=== PATIENT | female | born 1950 | race Two or more races ===

== ENCOUNTER 2024-04-26 14:16 | Inpatient (IN) | payer MEDICARE, OTHER ==
[~2024-04-26] VITALS: Ht 152.4 cm; Wt 36.7 kg
[2024-04-26] MEDS ORDERED: ALBUTEROL SULFATE 2.5 MG/3 ML NEBU ONE (14:31)
[2024-04-26] MEDS ORDERED: IPRATROPIUM BROMIDE 0.5 MG/2.5 ML NEBU ONE (14:31)
[2024-04-26 14:35] LABS: BASOPHILS # (AUTO) 0.1 K/UL (0.0-0.2); BASOPHILS % (AUTO) 0.8 % (0.0-2.0); EOSINOPHILS % (AUTO) 0.4 % (0.0-7.0); HEMATOCRIT 35.1 % (31.2-41.9); HEMOGLOBIN 11.4 g/dL (10.9-14.3); LYMPHOCYTES # (AUTO) 1.7 K/uL (0.8-4.8); LYMPHOCYTES % (AUTO) 24.1 % (20.5-51.5); MEAN CORPUSCULAR HEMOGLOBIN 30.4 uug (24.7-32.8); MEAN CORPUSCULAR HGB CONC 32 g/dL (32.3-35.6); MEAN CORPUSCULAR VOLUME 93.7 fL (75.5-95.3); MONOCYTES # (AUTO) 0.4 K/uL (0.1-1.30); MONOCYTES % (AUTO) 6.2 % (0.0-11.0); NEUTROPHILS # (AUTO) 4.8 K/uL (1.8-8.9); NEUTROPHILS % (AUTO) 68.5 % (38.5-71.5); PLATELET COUNT (AUTO) 314 K/uL (179-408); RED BLOOD CELL COUNT(AUTO) 3.75 MIL/uL (3.63-4.92); RED CELL DISTRIBUTION WIDTH 13.7 % (12.3-17.7); WHITE BLOOD COUNT (AUTO) 7.1 K/uL (3.8-11.8)
[2024-04-26 14:37] LABS: DIFFERENTIAL COMMENT 1
[2024-04-26] MEDS: IPRATROPIUM BROMIDE 0.5 MG/2.5 ML NEBU NEB ONE (14:38)
[2024-04-26] MEDS: ALBUTEROL SULFATE 2.5 MG/3 ML NEBU NEB ONE (14:38)
[2024-04-26 14:41] LABS: ABG BASE EXCESS 0.3 mmol/L (-2.0-3.0); ABG HCO3 26.4 mmol/L (21.0-28.0); ABG PCO2 49.2 mmHg (32.0-45.0); ABG PH 7.348 (7.350-7.450); ABG PO2 53.2 mmHg (83.0-108.0); ABG SITE RIGHT BRACHIAL; ABG TOTAL HEMOGLOBIN 12.1 G/dL (12.0-16.0); AaDO2 85.6 mmHg; COHb 0.3 % (0.5-1.5); MetHb 0.3 % (0.0-1.5); O2Hb 84.6 % (94.0-98.0)
[2024-04-26 14:43] LABS: CARBON DIOXIDE 26 mmol/L (21-32); CHLORIDE 108 mmol/L (98-107); CREATININE 0.7 mg/dL (0.6-1.3); GLUCOSE 177 mg/dL (74-106); POTASSIUM 4.1 mmol/L (3.5-5.1); SODIUM SERUM 146 mmol/L (136-145); UREA NITROGEN, BLOOD 32 mg/dL (7-18)
[2024-04-26] MEDS ORDERED: methylPREDNISolone SOD SUCC 125 MG/2 ML VIAL ONE (14:54)
[2024-04-26] MEDS: methylPREDNISolone SOD SUCC 125 MG/2 ML VIAL IV ONE (14:54)
[2024-04-26 14:55] LABS: LACTIC ACID 2.8 mmol/L (0.4-2.0)
[2024-04-26 15:00] LABS: ALANINE AMINOTRANSFERASE 10 U/L (14-59); ALBUMIN 3.1 g/dL (3.4-5.0); ALKALINE PHOSPHATASE 99 U/L (50-136); ASPARTATE AMINOTRANSFERASE 13 U/L (15-37); BILIRUBIN,DIRECT 0.2 mg/dL (0.0-0.2); BILIRUBIN,TOTAL 0.8 mg/dL (0.2-1.0); NT-PRO BNP 557 pg/mL (0-125); TOTAL PROTEIN, SERUM 7.4 g/dL (6.4-8.2)
[2024-04-26] MEDS ORDERED: ACETAMINOPHEN 650 MG SUPP.RECT RC ONE (15:02)
[2024-04-26] MEDS: ACETAMINOPHEN 650 MG SUPP.RECT RC ONE (15:18)
[2024-04-26] MEDS ORDERED: PIPERACILLIN/TAZOBACTAM/D5W 50 ML IV ONE (15:19)
[2024-04-26] MEDS ORDERED: VANCOMYCIN IV 200 ML ONE (15:19)
[2024-04-26] MEDS: IV NORMAL SALINE 1000 ML BAG IV ONE (15:28)
[2024-04-26] MEDS: PIPERACILLIN SODIUM/TAZOBACTAM 3.375 G in IV DEXTROSE 5% 50 ML IV ONE (15:28)
[2024-04-26] MEDS ORDERED: ACET325T53 PO (15:36)
[2024-04-26] MEDS ORDERED: ACET-73 PO (15:36)
[2024-04-26] MEDS ORDERED: TUBE5VIA2 TD (15:37)
[2024-04-26] MEDS ORDERED: ARGI1POW17 PO (15:37)
[2024-04-26] MEDS ORDERED: NA P133E RC (15:37)
[2024-04-26] MEDS ORDERED: CHOL100045 PO (15:37)
[2024-04-26] MEDS ORDERED: SENN8.6T19 PO (15:37)
[2024-04-26] MEDS ORDERED: ASCO500C18 PO (15:37)
[2024-04-26] MEDS ORDERED: GUAI-1189 PO (15:37)
[2024-04-26] MEDS ORDERED: GLYC30DR4 EACHEYE (15:37)
[2024-04-26] MEDS ORDERED: FERR-68 PO (15:37)
[2024-04-26] MEDS ORDERED: MELA3CAP2 PO (15:37)
[2024-04-26] MEDS ORDERED: AMIN960L24 PO (15:37)
[2024-04-26] MEDS ORDERED: BISA10SU61 RC (15:37)
[2024-04-26] MEDS ORDERED: DONE5TAB7 PO (15:37)
[2024-04-26] MEDS ORDERED: MULT-225 PO (15:37)
[2024-04-26] MEDS ORDERED: LACT10SO68 PO (15:37)
[2024-04-26] MEDS ORDERED: MIRT45TA79 PO (15:37)
[2024-04-26] MEDS ORDERED: [UNRECOGNIZED DRUG - CODE] TP (15:37)
[2024-04-26] MEDS ORDERED: MAGN400O6 PO (15:37)
[2024-04-26] MEDS ORDERED: CYAN-28 PO (15:37)
[2024-04-26] MEDS: VANCOMYCIN IV 1,000 MG in IV DEXTROSE 5% 250 ML IV ONE (15:56)
[2024-04-26 16:43] LABS: *BILIRUBIN,URIN NEGATIVE (NEGATIVE); *BLOOD, URINE 1+ (NEGATIVE); *CLARITY,URINE CLEAR (CLEAR); *COLOR,URINE YELLOW (YELLOW); *KETONES,URINE NEGATIVE (NEGATIVE); *PROTEIN,URINE 1+ (NEGATIVE); *UROBILINOGEN,URINE 0.2 E.U./dl (NORMAL); LEUKOCYTE ESTERASE ,URINE NEGATIVE (NEGATIVE); NITRITE, URINE NEGATIVE (NEGATIVE); PH,URINE 5.5 (5.0-8.0); UGLUCOSE TRACE (NEGATIVE)
[2024-04-26 16:47] LABS: RBC,URINE 0-3 /HPF (0-3); WBC,URINE 0-3 /HPF (0-3)
[2024-04-26] MEDS ORDERED: REMEDY ESSENTIAL ZINC PASTE 113 GM TP PRN (17:15)
[2024-04-26] MEDS ORDERED: ACETYLCYSTEINE 10% 4ML VIAL NEB PRN (17:15)
[2024-04-26] MEDS ORDERED: ALBUTEROL SULFATE 2.5 MG/3 ML NEBU NEB PRN (17:15)
[2024-04-26] MEDS ORDERED: ONDANSETRON 4 MG/2 ML VIAL IV PRN (17:15)
[2024-04-26] MEDS ORDERED: IPRATROPIUM BROMIDE 0.5 MG/2.5 ML NEBU NEB PRN (17:15)
[2024-04-26] MEDS ORDERED: ACETAMINOPHEN 650 MG SUPP.RECT RC PRN (17:15)
[2024-04-26] MEDS: ENOXAPARIN SODIUM 40 MG/0.4 ML DISP.SYRIN SQ SCH (17:50)
[2024-04-26 18:13] LABS: ABG BASE EXCESS -6.8 mmol/L (-2.0-3.0); ABG HCO3 17.2 mmol/L (21.0-28.0); ABG PCO2 29.8 mmHg (32.0-45.0); ABG PH 7.379 (7.350-7.450); ABG SITE RIGHT BRACHIAL; ABG TOTAL HEMOGLOBIN 11.1 G/dL (12.0-16.0); AaDO2 99.7 mmHg; COHb 0.2 % (0.5-1.5); MetHb 0.4 % (0.0-1.5)
[2024-04-26] MEDS ORDERED: ENOXAPARIN SODIUM 40 MG/0.4 ML DISP.SYRIN SQ SCH (19:21)
[2024-04-26] MEDS ORDERED: VANCOMYCIN IV 1,000 MG in IV DEXTROSE 5% 250 ML IV ONE (21:00)
[2024-04-26] MEDS ORDERED: PIPERACILLIN SODIUM/TAZOBACTAM 3.375 G in IV DEXTROSE 5% 50 ML IV ONE (22:00)
[2024-04-26 23:00] VITALS: BP 117/50; TEMP 98.5; O2SAT 99
[2024-04-26] MEDS: IV D5 1/2 NS 1000 ML 1,000 ML IV PRN (23:26)
[2024-04-26 23:30] VITALS: BP 115/56; O2SAT 97
[2024-04-27] VITALS (31 sets, daily range): BP systolic 96–132; BP diastolic 46–70; TEMP 97.1–99.6; O2SAT 94–100
[2024-04-27] MEDS ORDERED: REMEDY ESSENTIAL ZINC PASTE 113 GM TOP PRN (03:45)
[2024-04-27] MEDS ORDERED: PIPERACILLIN/TAZOBACTAM/D5W 50 ML IV ONE (04:11)
[2024-04-27] MEDS: PIPERACILLIN SODIUM/TAZOBACTAM 3.375 G in IV DEXTROSE 5% 50 ML IV SCH (05:02)
[2024-04-27 05:04] LABS: BASOPHILS % (AUTO) 0.2 % (0.0-2.0); HEMATOCRIT 28.5 % (31.2-41.9); HEMOGLOBIN 9.5 g/dL (10.9-14.3); LYMPHOCYTES # (AUTO) 0.2 K/uL (0.8-4.8); LYMPHOCYTES % (AUTO) 3.6 % (20.5-51.5); MEAN CORPUSCULAR HEMOGLOBIN 31.1 uug (24.7-32.8); MEAN CORPUSCULAR HGB CONC 34 g/dL (32.3-35.6); MEAN CORPUSCULAR VOLUME 92.9 fL (75.5-95.3); MONOCYTES # (AUTO) 0.3 K/uL (0.1-1.30); MONOCYTES % (AUTO) 4.5 % (0.0-11.0); NEUTROPHILS % (AUTO) 91.7 % (38.5-71.5); PLATELET COUNT (AUTO) 214 K/uL (179-408); RED BLOOD CELL COUNT(AUTO) 3.06 MIL/uL (3.63-4.92); RED CELL DISTRIBUTION WIDTH 13.5 % (12.3-17.7); WHITE BLOOD COUNT (AUTO) 6.5 K/uL (3.8-11.8)
[2024-04-27 05:25] LABS: DIFFERENTIAL COMMENT 1
[2024-04-27 05:37] LABS: CALCIUM 9.3 mg/dL (8.5-10.1); CARBON DIOXIDE 24 mmol/L (21-32); CHLORIDE 112 mmol/L (98-107); CREATININE 0.7 mg/dL (0.6-1.3); GLUCOSE 181 mg/dL (74-106); PHOSPHOROUS 1.6 mg/dL (2.5-4.9); POTASSIUM 3.2 mmol/L (3.5-5.1); SODIUM SERUM 146 mmol/L (136-145); UREA NITROGEN, BLOOD 24 mg/dL (7-18)
[2024-04-27] MEDS ORDERED: PIPERACILLIN SODIUM/TAZOBACTAM 3.375 G in IV DEXTROSE 5% 50 ML IV SCH (06:00)
[2024-04-27] MEDS: VANCOMYCIN IV 500 MG in IV DEXTROSE 5% 100 ML IV ONE (07:57)
[2024-04-27] MEDS: PANTOPRAZOLE SODIUM 40 MG VIAL IV SCH (08:04)
[2024-04-27] MEDS ORDERED: ENOXAPARIN SODIUM 40 MG/0.4 ML DISP.SYRIN SQ SCH ×2 (09:00)
[2024-04-27] MEDS: POTASSIUM PHOSPHATE MM 15 MMOL in IV NORMAL SALINE 250 ML IV ONE (09:33)
[2024-04-27] MEDS: PIPERACILLIN SODIUM/TAZOBACTAM 3.375 G in IV DEXTROSE 5% 100 ML IV SCH (14:16)
[2024-04-27] MEDS: ENOXAPARIN SODIUM 30 MG/0.3 ML DISP.SYRIN SUBCUT SCH (20:05)
[2024-04-28] VITALS (24 sets, daily range): BP systolic 91–143; BP diastolic 39–85; TEMP 97.1–98.5; O2SAT 95–98
[2024-04-28 05:16] LABS: BASOPHILS % (AUTO) 0.4 % (0.0-2.0); EOSINOPHILS # (AUTO) 0.2 K/uL (0.0-0.7); EOSINOPHILS % (AUTO) 2.9 % (0.0-7.0); HEMATOCRIT 27.3 % (31.2-41.9); HEMOGLOBIN 9.1 g/dL (10.9-14.3); LYMPHOCYTES # (AUTO) 0.5 K/uL (0.8-4.8); LYMPHOCYTES % (AUTO) 7.2 % (20.5-51.5); MEAN CORPUSCULAR HEMOGLOBIN 30.9 uug (24.7-32.8); MEAN CORPUSCULAR HGB CONC 33 g/dL (32.3-35.6); MEAN CORPUSCULAR VOLUME 92.9 fL (75.5-95.3); MONOCYTES # (AUTO) 0.4 K/uL (0.1-1.30); MONOCYTES % (AUTO) 6.1 % (0.0-11.0); NEUTROPHILS # (AUTO) 5.4 K/uL (1.8-8.9); NEUTROPHILS % (AUTO) 83.4 % (38.5-71.5); PLATELET COUNT (AUTO) 206 K/uL (179-408); RED BLOOD CELL COUNT(AUTO) 2.94 MIL/uL (3.63-4.92); RED CELL DISTRIBUTION WIDTH 13.7 % (12.3-17.7); WHITE BLOOD COUNT (AUTO) 6.5 K/uL (3.8-11.8)
[2024-04-28 05:19] LABS: DIFFERENTIAL COMMENT 1
[2024-04-28 05:30] LABS: ALBUMIN 2.2 g/dL (3.4-5.0); CALCIUM 8.9 mg/dL (8.5-10.1); CARBON DIOXIDE 27 mmol/L (21-32); CHLORIDE 114 mmol/L (98-107); CREATININE 0.6 mg/dL (0.6-1.3); GLUCOSE 100 mg/dL (74-106); PHOSPHOROUS 1.8 mg/dL (2.5-4.9); POTASSIUM 3.2 mmol/L (3.5-5.1); SODIUM SERUM 146 mmol/L (136-145); UREA NITROGEN, BLOOD 12 mg/dL (7-18)
[2024-04-28 05:52] LABS: HIV-1 p24 ANTIGEN NON REACTIVE (NONREACTIVE); HIV-1/2 ANTIBODY NON REACTIVE (NONREACTIVE)
[2024-04-28 06:25] LABS: ABG BASE EXCESS -1.1 mmol/L (-2.0-3.0); ABG HCO3 22.5 mmol/L (21.0-28.0); ABG PCO2 33.2 mmHg (32.0-45.0); ABG PH 7.449 (7.350-7.450); ABG PO2 83.8 mmHg (83.0-108.0); ABG SITE LEFT RADIAL; ABG TOTAL HEMOGLOBIN 9.9 G/dL (12.0-16.0); AaDO2 96.8 mmHg; COHb 0.2 % (0.5-1.5); MetHb 0.3 % (0.0-1.5); O2Hb 95.9 % (94.0-98.0)
[2024-04-28] MEDS: POTASSIUM PHOSPHATE MM 15 MMOL in IV NORMAL SALINE 250 ML IV ONE (09:03)
[2024-04-28] MEDS ORDERED: IV NORMAL SALINE 500 ML BAG IV ONE (12:15)
[2024-04-28] MEDS: MEDIHONEY= THERAHONEY 1.5 OZ TUBE TOP SCH (13:11)
[2024-04-28] MEDS: IV NORMAL SALINE 500 ML IV ONE (13:12)
[2024-04-28] MEDS ORDERED: SODIUM PHOSPHATE MM 15 MMOL in IV NORMAL SALINE 250 ML IV ONE (17:00)
[2024-04-28] MEDS: VANCOMYCIN IV 1,000 MG in IV DEXTROSE 5% 250 ML IV ONE (20:22)
[2024-04-28] MEDS ORDERED: MUPIROCIN 2% OINT 22 GM TUBE ONE (21:42)
[2024-04-28] MEDS: MUPIROCIN 2% OINT 22 GM TUBE NS SCH (21:48)
[2024-04-29] VITALS: BP 121/55; TEMP 97.5; O2SAT 96
[2024-04-29 04:00] VITALS: BP 108/52; TEMP 98.7; O2SAT 96
[2024-04-29 06:06] LABS: HEPATITIS B CORE AB, TOTAL Negative (Negative); HEPATITIS B SURFACE AB, QUAL Reactive (.); HEPATITIS B SURFACE AG Negative (Negative); HEPATITIS C VIRUS ANTIBODY Non Reactive (Non Reactive)
[2024-04-29 07:11] LABS: BASOPHILS # (AUTO) 0.1 K/UL (0.0-0.2); EOSINOPHILS # (AUTO) 0.4 K/uL (0.0-0.7); EOSINOPHILS % (AUTO) 6.3 % (0.0-7.0); HEMATOCRIT 26.6 % (31.2-41.9); LYMPHOCYTES # (AUTO) 0.7 K/uL (0.8-4.8); LYMPHOCYTES % (AUTO) 11.6 % (20.5-51.5); MEAN CORPUSCULAR HGB CONC 34 g/dL (32.3-35.6); MEAN CORPUSCULAR VOLUME 91.8 fL (75.5-95.3); MONOCYTES # (AUTO) 0.4 K/uL (0.1-1.30); MONOCYTES % (AUTO) 7.1 % (0.0-11.0); NEUTROPHILS # (AUTO) 4.2 K/uL (1.8-8.9); PLATELET COUNT (AUTO) 219 K/uL (179-408); RED CELL DISTRIBUTION WIDTH 13.2 % (12.3-17.7); WHITE BLOOD COUNT (AUTO) 5.7 K/uL (3.8-11.8)
[2024-04-29 07:13] LABS: DIFFERENTIAL COMMENT 1
[2024-04-29 07:14] LABS: CALCIUM 8.2 mg/dL (8.5-10.1); CARBON DIOXIDE 26 mmol/L (21-32); CHLORIDE 110 mmol/L (98-107); CREATININE 0.5 mg/dL (0.6-1.3); GLUCOSE 99 mg/dL (74-106); MAGNESIUM 1.9 mg/dL (1.8-2.4); PHOSPHOROUS 2.2 mg/dL (2.5-4.9); SODIUM SERUM 144 mmol/L (136-145); UREA NITROGEN, BLOOD 4 mg/dL (7-18)
[2024-04-29 07:45] LABS: C-REACTIVE PROTEIN 5.86 mg/dL (0.00-0.30); POTASSIUM 2.7 mmol/L (3.5-5.1)
[2024-04-29 08:00] VITALS: BP 139/51; TEMP 98.2; O2SAT 98
[2024-04-29] MEDS: POTASSIUM PHOSPHATE MM 15 MMOL in IV NORMAL SALINE 250 ML IV ONE (10:12)
[2024-04-29] MEDS: POTASSIUM CHLORIDE 50 ML IV SCH (10:12)
[2024-04-29 16:00] VITALS: BP 138/54; TEMP 97.8; O2SAT 97
[2024-04-29] MEDS: VANCOMYCIN IV 1,000 MG in IV DEXTROSE 5% 250 ML IV ONE (18:34)
[2024-04-29 19:00] VITALS: BP 142/56; TEMP 98.4; O2SAT 94
[2024-04-29 20:19] VITALS: O2SAT 98
[2024-04-30] MEDS: POTASSIUM CHLORIDE 20 MEQ in IV D5 1/2 NS 1000 ML 1,000 ML IV PRN (02:28)
[2024-04-30 06:33] VITALS: BP 136/55; TEMP 97.7; O2SAT 95
[2024-04-30 07:08] LABS: BASOPHILS # (AUTO) 0.1 K/UL (0.0-0.2); BASOPHILS % (AUTO) 1.4 % (0.0-2.0); EOSINOPHILS # (AUTO) 0.4 K/uL (0.0-0.7); EOSINOPHILS % (AUTO) 7.4 % (0.0-7.0); HEMATOCRIT 29.4 % (31.2-41.9); HEMOGLOBIN 9.8 g/dL (10.9-14.3); LYMPHOCYTES # (AUTO) 0.8 K/uL (0.8-4.8); LYMPHOCYTES % (AUTO) 14.9 % (20.5-51.5); MEAN CORPUSCULAR HEMOGLOBIN 30.7 uug (24.7-32.8); MEAN CORPUSCULAR HGB CONC 33 g/dL (32.3-35.6); MONOCYTES # (AUTO) 0.5 K/uL (0.1-1.30); MONOCYTES % (AUTO) 9.4 % (0.0-11.0); NEUTROPHILS # (AUTO) 3.7 K/uL (1.8-8.9); NEUTROPHILS % (AUTO) 66.9 % (38.5-71.5); PLATELET COUNT (AUTO) 242 K/uL (179-408); RED CELL DISTRIBUTION WIDTH 13.2 % (12.3-17.7); WHITE BLOOD COUNT (AUTO) 5.6 K/uL (3.8-11.8)
[2024-04-30 07:43] LABS: DIFFERENTIAL COMMENT 1
[2024-04-30 07:46] LABS: CALCIUM 8.5 mg/dL (8.5-10.1); CARBON DIOXIDE 26 mmol/L (21-32); CHLORIDE 108 mmol/L (98-107); CREATININE 0.6 mg/dL (0.6-1.3); GLUCOSE 94 mg/dL (74-106); PHOSPHOROUS 2.6 mg/dL (2.5-4.9); POTASSIUM 3.1 mmol/L (3.5-5.1); SODIUM SERUM 142 mmol/L (136-145); UREA NITROGEN, BLOOD 5 mg/dL (7-18)
[2024-04-30] MEDS: POTASSIUM CHLORIDE 50 ML IV SCH (10:40)
[2024-04-30 11:36] VITALS: BP 110/60; TEMP 97.9; O2SAT 97
[2024-04-30 12:15] VITALS: O2SAT 98
[2024-04-30] MEDS: VANCOMYCIN IV 1,000 MG in IV DEXTROSE 5% 250 ML IV SCH (18:12)
[2024-04-30 20:00] VITALS: BP 125/59; TEMP 97.9; O2SAT 97
[2024-04-30 20:28] VITALS: O2SAT 98
[2024-05-01 06:00] VITALS: BP 144/49; TEMP 97.6; O2SAT 96
[2024-05-01 07:35] LABS: BASOPHILS % (AUTO) 0.8 % (0.0-2.0); EOSINOPHILS # (AUTO) 0.5 K/uL (0.0-0.7); EOSINOPHILS % (AUTO) 9.5 % (0.0-7.0); HEMATOCRIT 29.1 % (31.2-41.9); LYMPHOCYTES # (AUTO) 0.8 K/uL (0.8-4.8); LYMPHOCYTES % (AUTO) 15.4 % (20.5-51.5); MEAN CORPUSCULAR HEMOGLOBIN 30.8 uug (24.7-32.8); MEAN CORPUSCULAR HGB CONC 34 g/dL (32.3-35.6); MEAN CORPUSCULAR VOLUME 89.9 fL (75.5-95.3); MONOCYTES # (AUTO) 0.5 K/uL (0.1-1.30); MONOCYTES % (AUTO) 9.6 % (0.0-11.0); NEUTROPHILS # (AUTO) 3.4 K/uL (1.8-8.9); NEUTROPHILS % (AUTO) 64.7 % (38.5-71.5); PLATELET COUNT (AUTO) 282 K/uL (179-408); RED BLOOD CELL COUNT(AUTO) 3.23 MIL/uL (3.63-4.92); RED CELL DISTRIBUTION WIDTH 13.3 % (12.3-17.7); WHITE BLOOD COUNT (AUTO) 5.2 K/uL (3.8-11.8)
[2024-05-01 07:52] LABS: CALCIUM 8.9 mg/dL (8.5-10.1); CARBON DIOXIDE 26 mmol/L (21-32); CHLORIDE 109 mmol/L (98-107); CREATININE 0.5 mg/dL (0.6-1.3); GLUCOSE 105 mg/dL (74-106); MAGNESIUM 1.9 mg/dL (1.8-2.4); PHOSPHOROUS 2.1 mg/dL (2.5-4.9); SODIUM SERUM 143 mmol/L (136-145); UREA NITROGEN, BLOOD 4 mg/dL (7-18)
[2024-05-01 07:54] LABS: DIFFERENTIAL COMMENT 1
[2024-05-01 08:05] LABS: POTASSIUM 3.6 mmol/L (3.5-5.1)
[2024-05-01] MEDS: POTASSIUM PHOSPHATE MM 15 MMOL in IV NORMAL SALINE 250 ML IV ONE (10:51)
[2024-05-01 11:03] VITALS: BP 138/60; TEMP 97.5; O2SAT 95
[2024-05-01] MEDS ORDERED: POTASSIUM PHOSPHATE MM 7.5 MMOL in IV NORMAL SALINE 97.5 ML IV ONE (12:00)
[2024-05-01 15:18] VITALS: BP 144/56; TEMP 97.3; O2SAT 95
[2024-05-01] MEDS ORDERED: JEVITY 1.2 1000 ML LIQUID GT PRN (15:45)
[2024-05-01] MEDS: JEVITY 1.2 1000 ML LIQUID GT PRN (16:54)
[2024-05-01 20:00] VITALS: BP 123/52; TEMP 98.1; O2SAT 96
[2024-05-01 20:30] VITALS: O2SAT 95
[2024-05-01 23:00] VITALS: O2SAT 98
[2024-05-02 06:12] VITALS: BP 114/53; TEMP 97.4; O2SAT 98
[2024-05-02 07:15] LABS: BASOPHILS % (AUTO) 0.8 % (0.0-2.0); EOSINOPHILS # (AUTO) 0.6 K/uL (0.0-0.7); EOSINOPHILS % (AUTO) 11.1 % (0.0-7.0); HEMATOCRIT 29.5 % (31.2-41.9); HEMOGLOBIN 10.1 g/dL (10.9-14.3); LYMPHOCYTES # (AUTO) 0.6 K/uL (0.8-4.8); LYMPHOCYTES % (AUTO) 11.6 % (20.5-51.5); MEAN CORPUSCULAR HEMOGLOBIN 31.4 uug (24.7-32.8); MEAN CORPUSCULAR HGB CONC 34 g/dL (32.3-35.6); MEAN CORPUSCULAR VOLUME 91.7 fL (75.5-95.3); MONOCYTES # (AUTO) 0.5 K/uL (0.1-1.30); MONOCYTES % (AUTO) 8.6 % (0.0-11.0); NEUTROPHILS # (AUTO) 3.8 K/uL (1.8-8.9); NEUTROPHILS % (AUTO) 67.9 % (38.5-71.5); PLATELET COUNT (AUTO) 284 K/uL (179-408); RED BLOOD CELL COUNT(AUTO) 3.22 MIL/uL (3.63-4.92); RED CELL DISTRIBUTION WIDTH 13.4 % (12.3-17.7); WHITE BLOOD COUNT (AUTO) 5.6 K/uL (3.8-11.8)
[2024-05-02 07:33] LABS: DIFFERENTIAL COMMENT 1
[2024-05-02 07:42] LABS: CALCIUM 8.7 mg/dL (8.5-10.1); CARBON DIOXIDE 26 mmol/L (21-32); CHLORIDE 109 mmol/L (98-107); CREATININE 0.7 mg/dL (0.6-1.3); GLUCOSE 128 mg/dL (74-106); MAGNESIUM 1.9 mg/dL (1.8-2.4); PHOSPHOROUS 2.8 mg/dL (2.5-4.9); POTASSIUM 3.6 mmol/L (3.5-5.1); SODIUM SERUM 142 mmol/L (136-145); UREA NITROGEN, BLOOD 2 mg/dL (7-18)
[2024-05-02] MEDS: PANTOPRAZOLE ORAL SUSPENSION 40 MG SUSPDR.PKT GT SCH (10:00)
[2024-05-02 11:42] VITALS: BP 133/51; TEMP 98.4; O2SAT 98
[2024-05-02 14:04] VITALS: O2SAT 98
[2024-05-02 16:00] VITALS: BP 142/69; TEMP 97.8; O2SAT 99
[2024-05-03] VITALS (7 sets, daily range): BP systolic 120–141; BP diastolic 47–71; TEMP 98–98.7; O2SAT 95–100
[2024-05-03 01:09] LABS: ADENOVIRUS Not Detected (Not Detected); CORONAVIRUS 229E Not Detected (Not Detected); CORONAVIRUS HKU1 Not Detected (Not Detected); CORONAVIRUS NL63 Not Detected (Not Detected); CORONAVIRUS OC43 Not Detected (Not Detected); NP BORDETELLA PERTUSIS Not Detected (Not Detected); NP CHLAMYDOPHILA PNEUMONIAE Not Detected (Not Detected); NP HUMAN METAPNEUMOVIRUS Not Detected (Not Detected); NP HUMAN RHINO/ENTERO VIRUS Not Detected (Not Detected); NP INFLUENZA A Not Detected (Not Detected); NP INFLUENZA A/H1 Not Detected (Not Detected); NP INFLUENZA A/H1-2009 Not Detected (Not Detected); NP INFLUENZA A/H3 Not Detected (Not Detected); NP INFLUENZA B Not Detected (Not Detected); NP MYCOPLASMA PNEUMONIAE Not Detected (Not Detected); NP PARAINFLUENZA 1 Not Detected (Not Detected); NP PARAINFLUENZA 2 Not Detected (Not Detected); NP PARAINFLUENZA 3 Not Detected (Not Detected); NP PARAINFLUENZA 4 Not Detected (Not Detected); NP RESPIRATORY SYNCYTIAL VIRUS Not Detected (Not Detected)
[2024-05-03 07:24] LABS: BASOPHILS # (AUTO) 0.1 K/UL (0.0-0.2); BASOPHILS % (AUTO) 0.7 % (0.0-2.0); EOSINOPHILS # (AUTO) 0.8 K/uL (0.0-0.7); EOSINOPHILS % (AUTO) 9.5 % (0.0-7.0); HEMOGLOBIN 9.7 g/dL (10.9-14.3); LYMPHOCYTES # (AUTO) 0.7 K/uL (0.8-4.8); LYMPHOCYTES % (AUTO) 8.1 % (20.5-51.5); MEAN CORPUSCULAR HEMOGLOBIN 30.8 uug (24.7-32.8); MEAN CORPUSCULAR HGB CONC 34 g/dL (32.3-35.6); MONOCYTES # (AUTO) 0.5 K/uL (0.1-1.30); MONOCYTES % (AUTO) 6.2 % (0.0-11.0); NEUTROPHILS # (AUTO) 6.1 K/uL (1.8-8.9); NEUTROPHILS % (AUTO) 75.5 % (38.5-71.5); PLATELET COUNT (AUTO) 286 K/uL (179-408); RED BLOOD CELL COUNT(AUTO) 3.15 MIL/uL (3.63-4.92)
[2024-05-03 07:31] LABS: CALCIUM 8.9 mg/dL (8.5-10.1); CARBON DIOXIDE 24 mmol/L (21-32); CHLORIDE 110 mmol/L (98-107); CREATININE 0.6 mg/dL (0.6-1.3); GLUCOSE 133 mg/dL (74-106); MAGNESIUM 1.8 mg/dL (1.8-2.4); PHOSPHOROUS 2.6 mg/dL (2.5-4.9); POTASSIUM 3.8 mmol/L (3.5-5.1); SODIUM SERUM 143 mmol/L (136-145); UREA NITROGEN, BLOOD 5 mg/dL (7-18)
[2024-05-03 07:33] LABS: DIFFERENTIAL COMMENT 1
[2024-05-03 08:07] LABS: C-REACTIVE PROTEIN 1.03 mg/dL (0.00-0.30)
[2024-05-03] MEDS ORDERED: PROPOFOL 200 MG/20 ML BOTTLE ONE (19:00)
[2024-05-04 04:23] VITALS: O2SAT 97
[2024-05-04 06:00] VITALS: BP 134/45; TEMP 97.3; O2SAT 97
[2024-05-04] MEDS: PIPERACILLIN SODIUM/TAZOBACTAM 3.375 G in IV DEXTROSE 5% 50 ML IV SCH (11:32)
[2024-05-04 12:00] VITALS: BP 133/59; TEMP 98.6; O2SAT 98
[2024-05-04 16:00] VITALS: BP 129/53; TEMP 97.8; O2SAT 97
[2024-05-04 20:43] VITALS: BP 114/43; TEMP 97.7; O2SAT 98
[2024-05-04 22:37] VITALS: O2SAT 97
[2024-05-05 07:17] LABS: CALCIUM 8.9 mg/dL (8.5-10.1); CARBON DIOXIDE 27 mmol/L (21-32); CHLORIDE 107 mmol/L (98-107); CREATININE 0.5 mg/dL (0.6-1.3); GLUCOSE 138 mg/dL (74-106); SODIUM SERUM 139 mmol/L (136-145); UREA NITROGEN, BLOOD 4 mg/dL (7-18)
[2024-05-05 08:50] VITALS: O2SAT 98
[2024-05-05 12:00] VITALS: BP 128/47; TEMP 98.2; O2SAT 98
[2024-05-05 16:00] VITALS: BP 127/51; TEMP 98.3; O2SAT 99
[2024-05-05 20:00] VITALS: BP 126/55; TEMP 97.8; O2SAT 100
[2024-05-05 21:25] VITALS: O2SAT 99
[2024-05-06 06:00] VITALS: BP 114/47; TEMP 98.5; O2SAT 97
[2024-05-06 07:31] LABS: ALANINE AMINOTRANSFERASE 13 U/L (14-59); ALBUMIN 2.1 g/dL (3.4-5.0); ALKALINE PHOSPHATASE 85 U/L (50-136); ASPARTATE AMINOTRANSFERASE 6 U/L (15-37); BILIRUBIN,TOTAL 0.2 mg/dL (0.2-1.0); CALCIUM 9.5 mg/dL (8.5-10.1); CARBON DIOXIDE 31 mmol/L (21-32); CHLORIDE 107 mmol/L (98-107); CREATININE 0.5 mg/dL (0.6-1.3); GLUCOSE 95 mg/dL (74-106); MAGNESIUM 2.1 mg/dL (1.8-2.4); POTASSIUM 4.5 mmol/L (3.5-5.1); SODIUM SERUM 137 mmol/L (136-145); TOTAL PROTEIN, SERUM 5.8 g/dL (6.4-8.2); UREA NITROGEN, BLOOD 9 mg/dL (7-18)
[2024-05-06] MEDS: ZINC SULFATE 220 MG CAPSULE GT SCH (09:17)
[2024-05-06] MEDS: ASCORBIC ACID 500 MG TABLET GT SCH (09:17)
[2024-05-06] MEDS: ACIDOPHILUS/BULGARICUS CHEW TAB GT SCH (09:18)
[2024-05-06] MEDS: MULTIVITAMINS,THERAPEUTIC TABLET GT SCH (09:18)
[2024-05-06] MEDS: ARGININE/GLUTAMINE/CALCIUM BMB 1 EACH POWD.PACK GT SCH (09:20)
[2024-05-06 09:45] LABS: BASOPHILS # (AUTO) 0.1 K/UL (0.0-0.2); BASOPHILS % (AUTO) 0.8 % (0.0-2.0); EOSINOPHILS # (AUTO) 0.4 K/uL (0.0-0.7); EOSINOPHILS % (AUTO) 4.9 % (0.0-7.0); HEMATOCRIT 30.5 % (31.2-41.9); HEMOGLOBIN 10.2 g/dL (10.9-14.3); LYMPHOCYTES # (AUTO) 1.3 K/uL (0.8-4.8); LYMPHOCYTES % (AUTO) 14.4 % (20.5-51.5); MEAN CORPUSCULAR HEMOGLOBIN 30.7 uug (24.7-32.8); MEAN CORPUSCULAR HGB CONC 33 g/dL (32.3-35.6); MEAN CORPUSCULAR VOLUME 92.2 fL (75.5-95.3); MONOCYTES # (AUTO) 0.5 K/uL (0.1-1.30); MONOCYTES % (AUTO) 6.1 % (0.0-11.0); NEUTROPHILS # (AUTO) 6.4 K/uL (1.8-8.9); NEUTROPHILS % (AUTO) 73.8 % (38.5-71.5); PLATELET COUNT (AUTO) 320 K/uL (179-408); RED BLOOD CELL COUNT(AUTO) 3.31 MIL/uL (3.63-4.92); RED CELL DISTRIBUTION WIDTH 13.9 % (12.3-17.7); WHITE BLOOD COUNT (AUTO) 8.7 K/uL (3.8-11.8)
[2024-05-06 16:00] VITALS: BP 109/42; TEMP 97.6; O2SAT 97
[2024-05-06] MEDS ORDERED: ALBU2.5V7 NEB (16:54)
[2024-05-06] MEDS ORDERED: IPRA0.2S6 NEB (16:54)
[2024-05-06] MEDS ORDERED: PANT40SU2 GT (16:54)
[2024-05-06] MEDS ORDERED: DONE5TAB7 GT (16:54)
[2024-05-06] MEDS ORDERED: ACID1TAB4 GT (16:54)
[2024-05-06] MEDS ORDERED: MIRT-74 GT (16:54)
[2024-05-06] MEDS ORDERED: MULT-24 GT (16:54)
[2024-05-06] MEDS ORDERED: NUTR1PAC14 GT (16:54)
[2024-05-06] MEDS ORDERED: ZINC1CAP3 GT (16:54)
[2024-05-06] MEDS ORDERED: MENT113O TOP (16:54)
[2024-05-06] MEDS ORDERED: ACET-2154 GT (16:54)
[2024-05-06] MEDS ORDERED: LACT-209 GT (16:54)
[2024-05-06] MEDS ORDERED: MELA3CAP2 GT (16:54)
[2024-05-06] MEDS ORDERED: ASCO500T21 GT (16:54)
[2024-05-06] MEDS ORDERED: POLY17PO4 GT (16:54)
== END 2024-05-06 17:30 | DRG 871 ==
LOC: ER 14:16 → CCU 22:05 → TELE3 04-28 18:32 → MEDSURG3 04-29 09:32
PROC: 5A09357 Assistance with Respiratory Ventilation, Less than 24 Consecutive Hours, Continuous Positive Airway Pressure (ICD-10-PCS; principal; 2024-04-26)
PROC: 05HB33Z Insertion of Infusion Device into Right Basilic Vein, Percutaneous Approach (ICD-10-PCS; 2024-04-27)
PROC: 0DH67UZ Insertion of Feeding Device into Stomach, Via Natural or Artificial Opening (ICD-10-PCS; 2024-04-30)
PROC: 3E0G76Z Introduction of Nutritional Substance into Upper GI, Via Natural or Artificial Opening (ICD-10-PCS; 2024-04-30)
PROC: 0DH63UZ Insertion of Feeding Device into Stomach, Percutaneous Approach (ICD-10-PCS; 2024-05-03)
DX: A41.9 Sepsis, unspecified organism (principal); E43 Unspecified severe protein-calorie malnutrition; L89.154 Pressure ulcer of sacral region, stage 4; J69.0 Pneumonitis due to inhalation of food and vomit; J96.01 Acute respiratory failure with hypoxia; J96.02 Acute respiratory failure with hypercapnia; G92.8 Other toxic encephalopathy; J18.9 Pneumonia, unspecified organism; D68.59 Other primary thrombophilia; Z68.1 Body mass index [BMI] 19.9 or less, adult; F01.53 Vascular dementia, unspecified severity, with mood disturbance; F01.54 Vascular dementia, unspecified severity, with anxiety; E87.0 Hyperosmolality and hypernatremia; N17.9 Acute kidney failure, unspecified; J44.0 Chronic obstructive pulmonary disease with (acute) lower respiratory infection; R64 Cachexia; Z66 Do not resuscitate; D64.9 Anemia, unspecified; R13.10 Dysphagia, unspecified; Z74.01 Bed confinement status; R62.7 Adult failure to thrive; E87.6 Hypokalemia; E88.09 Other disorders of plasma-protein metabolism, not elsewhere classified; E83.39 Other disorders of phosphorus metabolism; J44.9 Chronic obstructive pulmonary disease, unspecified; K59.00 Constipation, unspecified; K29.70 Gastritis, unspecified, without bleeding; M81.0 Age-related osteoporosis without current pathological fracture; Z22.322 Carrier or suspected carrier of Methicillin resistant Staphylococcus aureus; R94.31 Abnormal electrocardiogram [ECG] [EKG]; Z79.899 Other long term (current) drug therapy; Z86.73 Personal history of transient ischemic attack (TIA), and cerebral infarction without residual deficits; E11.9 Type 2 diabetes mellitus without complications; E86.1 Hypovolemia
CPT/HCPCS: 36415; 36600; 43761; 71045; 82803; 83605; 83735; 84100; 84484; 85025; 85730; 86140; 86704; 86706; 86803; 87040; 87340; 87806; 93005; 93307; 94660; 99082-TC; A4606; A4663; A6209; A6213; G0378; J0690; J1650; J2470; J2543; J2919; J3370; J3480; J3490; J3590; J7040; J7050